=== PATIENT | female | born 1935 | race Caucasian/White ===

== ENCOUNTER 2016-12-08 14:15 | Inpatient (IN) | payer MEDICARE, BC ==
[~2016-12-08] VITALS: Ht 152.4 cm; Wt 78.2 kg
[~2016-12-08 14:15] MED LIST: ACETAMINOPHEN325 M2 PO; CALCITRIOL0.25 MC1 PO; CLARITIN10 M8 PO; DEMADEX20 M1 PO; FLONASE ALLERG9.9 ML; LEVAQUIN500 M1 PO; METOPROLOL SUCC50 M1 PO; POTASSIUM CHLO10 ME2 PO; PROMETH-CODEIN 65 ML PO; VERAMYST10 G1 INH; VITAMIN D32000 UNI3 PO
[2016-12-08] MEDS ORDERED: POTASSIUM CHLO10 ME1 PO (14:20)
[2016-12-08] MEDS ORDERED: DEMADEX20 M1 PO (14:20)
[2016-12-08] MEDS ORDERED: ZYLOPRIM100 M1 PO (14:21)
[2016-12-08] MEDS ORDERED: ROCALTROL0.25 MC1 PO (14:31)
[2016-12-08] MEDS ORDERED: TOPROL XL50 M1 PO (14:32)
[2016-12-08] MEDS ORDERED: XELODA (14:35)
[2016-12-08 18:39] LABS: BASO % 0.2 % (0-2); EOS % 0.4 % (0-7); EOSINOPHIL ABSOLUTE COUNT 0.1 tho/cmm (0.0-0.7); HCT-HEMATOCRIT 31.4 % (34.0-49.0); HGB-HEMOGLOBIN 10.7 gm/dl (12.0-15.5); IMMATURE GRANULOCYTES ABSOLUTE 0.02 tho/cmm (0-0.03); IMMATURE GRANULOCYTES PERCENT 0.2 % (0-0.3); LYMPH % 10.4 % (20-45); LYMPH ABSOLUTE COUNT 1.3 tho/cmm (0.8-4.5); MCH (MEAN CORPUSCULAR HGB) 37.4 pg (28.0-32.0); MCHC MEAN CORPUSCULAR HGB CONC 34.1 % (32.0-36.0); MCV (MEAN CELL VOLUME) 109.8 fl (82.0-96.0); MEAN PLATELET VOLUME 9.8 cmc (9.4-12.4); MONO % 7.6 % (0-12); MONOCYTE ABSOLUTE COUNT 0.9 tho/cmm (0.0-1.2); NEUTROPHILS % 81.2 % (40-80); PLATELET COUNT 166 tho/cmm (150-450); RED BLOOD COUNT 2.86 mil/cmm (4.00-5.20); RED CELL DISTRIBUTION WIDTH 20.3 % (12.4-16.4); WHITE BLOOD COUNT 12.4 tho/cmm (4.0-10.0)
[2016-12-08 18:50] LABS: INR 1.4 INR (0.9-1.1); PROTHROMBIN TIME 16.1 SECONDS (9.0-13.6)
[2016-12-08 18:51] LABS: ALB/GLOB RATIO 0.8 (0.8-2.0); ALBUMIN 2.4 g/dl (3.5-5.0); ALKALINE PHOSPHATASE 363 U/L (33-138); ALT/SGPT 57 U/L (12-78); ANION GAP 14 mmol/L (0-20); AST/SGOT 144 U/L (10-40); BILIRUBIN,TOTAL 2.1 mg/dl (0-1.5); BLOOD UREA NITROGEN 45 mg/dl (6-24); CALCIUM 8.4 mg/dl (8.5-10.5); CARBON DIOXIDE-VENOUS 23 mmol/L (22-32); CHLORIDE 104 mmol/l (96-110); CREATININE 2.36 mg/dl (0.50-1.10); GLUCOSE 115 mg/dL (70-110); POTASSIUM 4.1 mmol/L (3.7-5.1); SODIUM 137 mmol/L (135-145); eGFR VALUE FOR BLACK 22 mL/Min
[2016-12-09 06:21] LABS: BASO % 0.3 % (0-2); EOS % 0.7 % (0-7); EOSINOPHIL ABSOLUTE COUNT 0.1 tho/cmm (0.0-0.7); HCT-HEMATOCRIT 30.2 % (34.0-49.0); HGB-HEMOGLOBIN 10.2 gm/dl (12.0-15.5); IMMATURE GRANULOCYTES ABSOLUTE 0.04 tho/cmm (0-0.03); IMMATURE GRANULOCYTES PERCENT 0.3 % (0-0.3); LYMPH % 9.8 % (20-45); LYMPH ABSOLUTE COUNT 1.1 tho/cmm (0.8-4.5); MCH (MEAN CORPUSCULAR HGB) 37.1 pg (28.0-32.0); MCHC MEAN CORPUSCULAR HGB CONC 33.8 % (32.0-36.0); MCV (MEAN CELL VOLUME) 109.8 fl (82.0-96.0); MEAN PLATELET VOLUME 9.5 cmc (9.4-12.4); MONO % 9.9 % (0-12); MONOCYTE ABSOLUTE COUNT 1.2 tho/cmm (0.0-1.2); NEUTROPHIL ABSOLUTE COUNT 9.2 tho/cmm (1.6-8.0); NEUTROPHIL-AUTOMATED 9.2 tho/cmm (1.6-8.0); PLATELET COUNT 170 tho/cmm (150-450); RED BLOOD COUNT 2.75 mil/cmm (4.00-5.20); RED CELL DISTRIBUTION WIDTH 20.7 % (12.4-16.4); WHITE BLOOD COUNT 11.7 tho/cmm (4.0-10.0)
[2016-12-09 06:34] LABS: ALB/GLOB RATIO 0.8 (0.8-2.0); ALBUMIN 2.3 g/dl (3.5-5.0); ALKALINE PHOSPHATASE 395 U/L (33-138); ALT/SGPT 58 U/L (12-78); ANION GAP 15 mmol/L (0-20); AST/SGOT 158 U/L (10-40); BILIRUBIN,TOTAL 2.1 mg/dl (0-1.5); BLOOD UREA NITROGEN 44 mg/dl (6-24); CALCIUM 7.6 mg/dl (8.5-10.5); CARBON DIOXIDE-VENOUS 21 mmol/L (22-32); CHLORIDE 105 mmol/l (96-110); CREATININE 2.34 mg/dl (0.50-1.10); GLUCOSE 87 mg/dL (70-110); MAGNESIUM 1.9 mg/dl (1.8-2.6); POTASSIUM 4.2 mmol/L (3.7-5.1); SODIUM 137 mmol/L (135-145); eGFR VALUE FOR BLACK 22 mL/Min
[2016-12-09 06:56] LABS: URINE BILIRUBIN NEGATIVE (NEG); URINE BLOOD NEGATIVE (NEG); URINE GLUCOSE (UA) NEGATIVE (NEG); URINE KETONE NEGATIVE (NEG); URINE LEUKOCYTE ESTERASE NEGATIVE (NEG); URINE NITRITE NEGATIVE (NEG); URINE PH 6.5 (5.0-8.0); URINE PROTEIN NEGATIVE (NEG)
[2016-12-09 06:57] LABS: URINE APPEARANCE CLEAR; URINE COLOR YELLOW
[2016-12-09 07:12] LABS: URINE CREATININE-RANDOM 67 mg/dl (30-125); URINE SODIUM-RANDOM 17 mmol/L (20-110)
[2016-12-10 05:37] LABS: INR 1.4 INR (0.9-1.1); PROTHROMBIN TIME 16.2 SECONDS (9.0-13.6)
[2016-12-10 05:38] LABS: BASO % 0.3 % (0-2); EOS % 1.3 % (0-7); EOSINOPHIL ABSOLUTE COUNT 0.1 tho/cmm (0.0-0.7); HCT-HEMATOCRIT 27.7 % (34.0-49.0); HGB-HEMOGLOBIN 9.3 gm/dl (12.0-15.5); IMMATURE GRANULOCYTES ABSOLUTE 0.04 tho/cmm (0-0.03); IMMATURE GRANULOCYTES PERCENT 0.4 % (0-0.3); LYMPH % 11.3 % (20-45); LYMPH ABSOLUTE COUNT 1.2 tho/cmm (0.8-4.5); MCH (MEAN CORPUSCULAR HGB) 37.5 pg (28.0-32.0); MCHC MEAN CORPUSCULAR HGB CONC 33.6 % (32.0-36.0); MCV (MEAN CELL VOLUME) 111.7 fl (82.0-96.0); MONO % 10.5 % (0-12); MONOCYTE ABSOLUTE COUNT 1.2 tho/cmm (0.0-1.2); NEUTROPHIL ABSOLUTE COUNT 8.4 tho/cmm (1.6-8.0); NEUTROPHIL-AUTOMATED 8.4 tho/cmm (1.6-8.0); NEUTROPHILS % 76.2 % (40-80); PLATELET COUNT 133 tho/cmm (150-450); RED BLOOD COUNT 2.48 mil/cmm (4.00-5.20); RED CELL DISTRIBUTION WIDTH 21.2 % (12.4-16.4)
[2016-12-10 05:50] LABS: ALBUMIN 2.6 g/dl (3.5-5.0); ALKALINE PHOSPHATASE 337 U/L (33-138); ALT/SGPT 54 U/L (12-78); ANION GAP 13 mmol/L (0-20); AST/SGOT 141 U/L (10-40); BILIRUBIN,DIRECT 1.1 mg/dl (0.0-0.3); BILIRUBIN,INDIRECT 1.4 mg/dL (0.0-1.0); BILIRUBIN,TOTAL 2.5 mg/dl (0-1.5); BLOOD UREA NITROGEN 46 mg/dl (6-24); CALCIUM 8.1 mg/dl (8.5-10.5); CARBON DIOXIDE-VENOUS 20 mmol/L (22-32); CHLORIDE 108 mmol/l (96-110); CREATININE 2.56 mg/dl (0.50-1.10); GLUCOSE 98 mg/dL (70-110); MAGNESIUM 1.9 mg/dl (1.8-2.6); PHOSPHOROUS 3.1 mg/dl (2.5-4.9); POTASSIUM 4.3 mmol/L (3.7-5.1); SODIUM 137 mmol/L (135-145); eGFR VALUE FOR BLACK 20 mL/Min
[2016-12-11 05:06] LABS: BASO % 0.3 % (0-2); EOS % 1.8 % (0-7); EOSINOPHIL ABSOLUTE COUNT 0.2 tho/cmm (0.0-0.7); HCT-HEMATOCRIT 26.2 % (34.0-49.0); HGB-HEMOGLOBIN 8.7 gm/dl (12.0-15.5); IMMATURE GRANULOCYTES ABSOLUTE 0.02 tho/cmm (0-0.03); IMMATURE GRANULOCYTES PERCENT 0.2 % (0-0.3); LYMPH % 11.1 % (20-45); LYMPH ABSOLUTE COUNT 1.1 tho/cmm (0.8-4.5); MCH (MEAN CORPUSCULAR HGB) 37.3 pg (28.0-32.0); MCHC MEAN CORPUSCULAR HGB CONC 33.2 % (32.0-36.0); MCV (MEAN CELL VOLUME) 112.4 fl (82.0-96.0); MONO % 11.1 % (0-12); MONOCYTE ABSOLUTE COUNT 1.1 tho/cmm (0.0-1.2); NEUTROPHIL ABSOLUTE COUNT 7.3 tho/cmm (1.6-8.0); NEUTROPHIL-AUTOMATED 7.3 tho/cmm (1.6-8.0); NEUTROPHILS % 75.5 % (40-80); PLATELET COUNT 120 tho/cmm (150-450); RED BLOOD COUNT 2.33 mil/cmm (4.00-5.20); WHITE BLOOD COUNT 9.6 tho/cmm (4.0-10.0)
[2016-12-11 05:22] LABS: ALB/GLOB RATIO 1.3 (0.8-2.0); ALBUMIN 2.9 g/dl (3.5-5.0); ALKALINE PHOSPHATASE 285 U/L (33-138); ALT/SGPT 52 U/L (12-78); ANION GAP 14 mmol/L (0-20); AST/SGOT 131 U/L (10-40); BILIRUBIN,TOTAL 2.7 mg/dl (0-1.5); BLOOD UREA NITROGEN 46 mg/dl (6-24); CARBON DIOXIDE-VENOUS 20 mmol/L (22-32); CHLORIDE 110 mmol/l (96-110); CREATININE 2.46 mg/dl (0.50-1.10); GLUCOSE 87 mg/dL (70-110); PHOSPHOROUS 2.9 mg/dl (2.5-4.9); SODIUM 140 mmol/L (135-145); eGFR VALUE FOR BLACK 21 mL/Min
[2016-12-11 14:38] LABS: BODY FLUID APPEARANCE CLOUDY (CLEAR); BODY FLUID RBC COUNT 3000 cmm (0); BODY FLUID TYPE ASCITIS; BODY FLUID VOLUME 1100 ml; BODY FLUID WBC COUNT 225 cmm
[2016-12-11 15:43] LABS: BODY FLUID LYMPHOCYTES 27 %; BODY FLUID MACROPHAGES 52 %; BODY FLUID MESOTHELIAL CELLS 5 %; BODY FLUID NEUTROPHILS 16 %
[2016-12-11 17:59] LABS: BASO % 0.3 % (0-2); EOS % 1.6 % (0-7); EOSINOPHIL ABSOLUTE COUNT 0.2 tho/cmm (0.0-0.7); HCT-HEMATOCRIT 28.8 % (34.0-49.0); HGB-HEMOGLOBIN 9.7 gm/dl (12.0-15.5); IMMATURE GRANULOCYTES ABSOLUTE 0.03 tho/cmm (0-0.03); IMMATURE GRANULOCYTES PERCENT 0.3 % (0-0.3); LYMPH % 10.6 % (20-45); LYMPH ABSOLUTE COUNT 1.1 tho/cmm (0.8-4.5); MCH (MEAN CORPUSCULAR HGB) 37.9 pg (28.0-32.0); MCHC MEAN CORPUSCULAR HGB CONC 33.7 % (32.0-36.0); MCV (MEAN CELL VOLUME) 112.5 fl (82.0-96.0); MEAN PLATELET VOLUME 9.3 cmc (9.4-12.4); MONO % 11.1 % (0-12); MONOCYTE ABSOLUTE COUNT 1.1 tho/cmm (0.0-1.2); NEUTROPHIL ABSOLUTE COUNT 7.6 tho/cmm (1.6-8.0); NEUTROPHIL-AUTOMATED 7.6 tho/cmm (1.6-8.0); NEUTROPHILS % 76.1 % (40-80); PLATELET COUNT 117 tho/cmm (150-450); RED BLOOD COUNT 2.56 mil/cmm (4.00-5.20)
[2016-12-11 18:17] LABS: ALB/GLOB RATIO 1.4 (0.8-2.0); ALBUMIN 3.2 g/dl (3.5-5.0); ALKALINE PHOSPHATASE 337 U/L (33-138); ALT/SGPT 57 U/L (12-78); ANION GAP 15 mmol/L (0-20); AST/SGOT 175 U/L (10-40); BLOOD UREA NITROGEN 44 mg/dl (6-24); CALCIUM 7.9 mg/dl (8.5-10.5); CARBON DIOXIDE-VENOUS 19 mmol/L (22-32); CHLORIDE 112 mmol/l (96-110); CREATININE 2.41 mg/dl (0.50-1.10); GLUCOSE 104 mg/dL (70-110); POTASSIUM 4.1 mmol/L (3.7-5.1); SODIUM 142 mmol/L (135-145); eGFR VALUE FOR BLACK 21 mL/Min
[2016-12-11 18:23] LABS: BILIRUBIN,TOTAL 4.6 mg/dl (0-1.5)
[2016-12-12 04:59] LABS: BASO % 0.3 % (0-2); EOS % 1.8 % (0-7); EOSINOPHIL ABSOLUTE COUNT 0.2 tho/cmm (0.0-0.7); HCT-HEMATOCRIT 26.9 % (34.0-49.0); HGB-HEMOGLOBIN 9.1 gm/dl (12.0-15.5); IMMATURE GRANULOCYTES ABSOLUTE 0.02 tho/cmm (0-0.03); IMMATURE GRANULOCYTES PERCENT 0.2 % (0-0.3); LYMPH % 14.4 % (20-45); LYMPH ABSOLUTE COUNT 1.3 tho/cmm (0.8-4.5); MCH (MEAN CORPUSCULAR HGB) 37.9 pg (28.0-32.0); MCHC MEAN CORPUSCULAR HGB CONC 33.8 % (32.0-36.0); MCV (MEAN CELL VOLUME) 112.1 fl (82.0-96.0); MEAN PLATELET VOLUME 9.9 cmc (9.4-12.4); MONO % 8.8 % (0-12); MONOCYTE ABSOLUTE COUNT 0.8 tho/cmm (0.0-1.2); NEUTROPHIL ABSOLUTE COUNT 6.5 tho/cmm (1.6-8.0); NEUTROPHIL-AUTOMATED 6.5 tho/cmm (1.6-8.0); NEUTROPHILS % 74.5 % (40-80); PLATELET COUNT 107 tho/cmm (150-450); RED CELL DISTRIBUTION WIDTH 21.2 % (12.4-16.4); WHITE BLOOD COUNT 8.8 tho/cmm (4.0-10.0)
[2016-12-12 05:16] LABS: ALB/GLOB RATIO 1.7 (0.8-2.0); ALBUMIN 3.1 g/dl (3.5-5.0); ALKALINE PHOSPHATASE 288 U/L (33-138); ALT/SGPT 54 U/L (12-78); ANION GAP 15 mmol/L (0-20); AST/SGOT 150 U/L (10-40); BILIRUBIN,TOTAL 5.1 mg/dl (0-1.5); BLOOD UREA NITROGEN 41 mg/dl (6-24); CALCIUM 7.8 mg/dl (8.5-10.5); CARBON DIOXIDE-VENOUS 18 mmol/L (22-32); CHLORIDE 111 mmol/l (96-110); CREATININE 2.21 mg/dl (0.50-1.10); GLUCOSE 82 mg/dL (70-110); POTASSIUM 3.9 mmol/L (3.7-5.1); SODIUM 140 mmol/L (135-145); eGFR VALUE FOR BLACK 24 mL/Min
[2016-12-13 04:50] LABS: BASO % 0.5 % (0-2); EOS % 2.8 % (0-7); EOSINOPHIL ABSOLUTE COUNT 0.2 tho/cmm (0.0-0.7); HCT-HEMATOCRIT 27.3 % (34.0-49.0); HGB-HEMOGLOBIN 9.2 gm/dl (12.0-15.5); IMMATURE GRANULOCYTES ABSOLUTE 0.02 tho/cmm (0-0.03); IMMATURE GRANULOCYTES PERCENT 0.2 % (0-0.3); LYMPH % 15.1 % (20-45); LYMPH ABSOLUTE COUNT 1.2 tho/cmm (0.8-4.5); MCH (MEAN CORPUSCULAR HGB) 37.4 pg (28.0-32.0); MCHC MEAN CORPUSCULAR HGB CONC 33.7 % (32.0-36.0); MEAN PLATELET VOLUME 10.2 cmc (9.4-12.4); MONO % 11.8 % (0-12); NEUTROPHIL ABSOLUTE COUNT 5.6 tho/cmm (1.6-8.0); NEUTROPHIL-AUTOMATED 5.6 tho/cmm (1.6-8.0); NEUTROPHILS % 69.6 % (40-80); PLATELET COUNT 119 tho/cmm (150-450); RED BLOOD COUNT 2.46 mil/cmm (4.00-5.20); RED CELL DISTRIBUTION WIDTH 21.6 % (12.4-16.4); WHITE BLOOD COUNT 8.1 tho/cmm (4.0-10.0)
[2016-12-13 05:03] LABS: ALB/GLOB RATIO 1.9 (0.8-2.0); ALBUMIN 3.5 g/dl (3.5-5.0); ALKALINE PHOSPHATASE 277 U/L (33-138); ALT/SGPT 55 U/L (12-78); ANION GAP 15 mmol/L (0-20); AST/SGOT 151 U/L (10-40); BLOOD UREA NITROGEN 41 mg/dl (6-24); CALCIUM 8.2 mg/dl (8.5-10.5); CARBON DIOXIDE-VENOUS 17 mmol/L (22-32); CHLORIDE 109 mmol/l (96-110); GLUCOSE 83 mg/dL (70-110); POTASSIUM 3.9 mmol/L (3.7-5.1); SODIUM 137 mmol/L (135-145); eGFR VALUE FOR BLACK 24 mL/Min
[2016-12-14 05:03] LABS: BASO % 0.5 % (0-2); EOS % 1.7 % (0-7); EOSINOPHIL ABSOLUTE COUNT 0.1 tho/cmm (0.0-0.7); HCT-HEMATOCRIT 27.4 % (34.0-49.0); HGB-HEMOGLOBIN 9.3 gm/dl (12.0-15.5); IMMATURE GRANULOCYTES ABSOLUTE 0.04 tho/cmm (0-0.03); IMMATURE GRANULOCYTES PERCENT 0.5 % (0-0.3); LYMPH % 12.1 % (20-45); MCH (MEAN CORPUSCULAR HGB) 37.8 pg (28.0-32.0); MCHC MEAN CORPUSCULAR HGB CONC 33.9 % (32.0-36.0); MCV (MEAN CELL VOLUME) 111.4 fl (82.0-96.0); MEAN PLATELET VOLUME 9.5 cmc (9.4-12.4); MONO % 12.3 % (0-12); NEUTROPHIL ABSOLUTE COUNT 5.9 tho/cmm (1.6-8.0); NEUTROPHIL-AUTOMATED 5.9 tho/cmm (1.6-8.0); NEUTROPHILS % 72.9 % (40-80); PLATELET COUNT 115 tho/cmm (150-450); RED BLOOD COUNT 2.46 mil/cmm (4.00-5.20); WHITE BLOOD COUNT 8.1 tho/cmm (4.0-10.0)
[2016-12-14 05:19] LABS: ALB/GLOB RATIO 1.7 (0.8-2.0); ALBUMIN 3.1 g/dl (3.5-5.0); ALKALINE PHOSPHATASE 265 U/L (33-138); ALT/SGPT 54 U/L (12-78); ANION GAP 18 mmol/L (0-20); AST/SGOT 157 U/L (10-40); BILIRUBIN,TOTAL 8.5 mg/dl (0-1.5); BLOOD UREA NITROGEN 40 mg/dl (6-24); CALCIUM 8.2 mg/dl (8.5-10.5); CARBON DIOXIDE-VENOUS 17 mmol/L (22-32); CHLORIDE 109 mmol/l (96-110); CREATININE 2.11 mg/dl (0.50-1.10); GLUCOSE 79 mg/dL (70-110); POTASSIUM 4.1 mmol/L (3.7-5.1); SODIUM 140 mmol/L (135-145); eGFR VALUE FOR BLACK 25 mL/Min
[2016-12-15] MEDS ORDERED: ELIQUIS5 M1 PO ×2 (14:57→14:58)
[2016-12-15] MEDS ORDERED: ATIVAN0.5 M1 SL (15:11)
[2016-12-15] MEDS ORDERED: MORPHINE SU SL (15:12)
== END 2016-12-15 15:54 | DRG 683 ==
LOC: 5WF 14:15
PROVIDERS: Internal Medicine Hematology & Oncology; Radiology Diagnostic Radiology; Specialist; ADMIT Internal Medicine Medical Oncology
PROC: 0W9G3ZZ Drainage of Peritoneal Cavity, Percutaneous Approach (ICD-10-PCS; principal; 2016-12-11)
DX: N17.9 Acute kidney failure, unspecified (principal); R18.8 Other ascites; C78.7 Secondary malignant neoplasm of liver and intrahepatic bile duct; C50.919 Malignant neoplasm of unspecified site of unspecified female breast; D53.9 Nutritional anemia, unspecified; I12.9 Hypertensive chronic kidney disease with stage 1 through stage 4 chronic kidney disease, or unspecified chronic kidney disease; N18.3 Chronic kidney disease, stage 3 (moderate); Z51.5 Encounter for palliative care; E78.5 Hyperlipidemia, unspecified
CPT/HCPCS: C1729; J1650; J2270; J2354; J3480; J7030; P9047